=== PATIENT | female | born 1975 | race Caucasian/White ===

== ENCOUNTER 2020-02-19 07:37 | Day surgery (SDC) | payer OTHER ==
[~2020-02-19 07:37] MED LIST: Sodium Chloride 0.9% 10 ML SDV IV PRN; Sodium Chloride 0.9% 10 ML Syringe FLUSH PRN; Sodium Chloride 0.9% 2.5 ML Syringe FLUSH PRN
[2020-02-19] MEDS ORDERED: Lactated Ringers 1,000 ML IV SCH (08:15)
--- NOTE | 2020-02-19 08:21 | PCM.PREANE ---
Preanesthetic Assessment - Anesthesia/Transfusion/Family Hx Anesthesia History: Prior Anesthesia Without Reaction Family History of Anesthesia Reaction: No Transfusion History: No Prior Transfusion(s) - Review of Systems General: No Symptoms Pulmonary: No Symptoms Cardiovascular: No Symptoms Gastrointestinal: No Symptoms Neurological: No Symptoms Other: Reports: None - Physical Assessment NPO Status Date: 02/18/20 Height: 5 ft 9 in Weight: 113.852 kg ASA Class: 2 Mental Status: Alert & Oriented x3 Airway Class: Mallampati = 2 Dentition: Reports: Normal Dentition ROM/Head Extension: Full Lungs: Clear to Auscultation, Normal Respiratory Effort - Allergies Allergies/Adverse Reactions: Allergies Allergy/AdvReac Type Severity Reaction Status Date / Time ketorolac [From Toradol] Allergy "stomach Verified 02/19/20 08:13 spasms" - Blood Blood Available: No - Anesthesia Plan Pre-Op Medication Ordered: None - Acknowledgements Anesthesia Type Planned: General Anesthesia Pt an Appropriate Candidate for the Planned Anesthesia: Yes Alternatives and Risks of Anesthesia Discussed w Pt/Guardian: Yes Pt/Guardian Understands and Agrees with Anesthesia Plan: Yes Additional Comments: pmh: migraine, anxiety disorder (? bipolar -abilify, topamax) PLAN: ga/lma PreAnesthesia Questionnaire HEENT History: Reports: Allergic Rhinitis, Other (See Below) Other HEENT History: wears glasses Cardiovascular History: Reports: None Respiratory History: Reports: None Gastrointestinal History: Reports: GERD Genitourinary History: Reports: None [employer] History: Reports: , Other (See Below) Other OB/BYN History: hx suction D&C for incomplete AB Musculoskeletal History: Reports: None Neurological History: Reports: Migraines Psychiatric History: Reports: Anxiety, Depression Endocrine/Metabolic History: Reports: Obesity/BMI 30+ Hematologic History: Reports: None Immunologic History: Reports: Other (See Below) Other Immunologic History: hx MRSA following breast reduction Oncologic (Cancer) History: Reports: None Dermatologic History: Reports: None - Past Surgical History Head Surgeries/Procedures: Reports: None HEENT Surgical History: Reports: Naso-Sinus Surgery Cardiovascular Surgical History: Reports: None Respiratory Surgical History: Reports: None GI Surgical History: Reports: Cholecystectomy, EGD Female Surgical History: Reports: Breast Reconstruction, D&C, Tubal Ligation Endocrine Surgical History: Reports: None Neurological Surgical History: Reports: None Musculoskeletal Surgical History: Reports: Arthroscopic Knee Oncologic Surgical History: Reports: None Dermatological Surgical History: Reports: Plastic Surgical Reconstruction/Repair - SUBSTANCE USE Smoking Status *Q: Former Smoker Tobacco Use Within Last Twelve Months: No - HOME MEDS Home Medications: Home Meds ARIPiprazole [Abilify] 5 mg PO DAILY 02/15/20 [History] Cholecalciferol (Vitamin D3) [Vitamin D3] 400 units PO DAILY 02/15/20 [History] Cimetidine 400 mg PO DAILY 02/15/20 [History] Desvenlafaxine Succinate [Pristiq] 100 mg PO DAILY 02/15/20 [History] Fish Oil/[place]-3 Fatty Acids [Fish Oil 1,000 MG] 1,000 mg PO DAILY 02/15/20 [History] Fluticasone Propionate [Flonase Allergy Relief] 1 spray NASBOTH DAILY PRN 02/15/20 [History] Loratadine/Pseudoephedrine [Claritin-D 24 Hour Tablet] 1 tab PO DAILY 02/15/20 [History] Multivitamin [Multivitamins] 1 tab PO DAILY 02/15/20 [History] Pantoprazole Sodium [Protonix] 2 tab PO DAILY 02/15/20 [History] Testosterone [Androderm] 1 dose .ROUTE ASDIRECTED 02/15/20 [History] desogestreL-ethinyl estradioL [Jule[place] 28 Day Tablet] 1 tab PO DAILY 02/15/20 [History] traZODone HCl [Trazodone HCl] 0.5 mg PO BEDTIME 02/15/20 [History] Topiramate [Topamax] 25 mg PO DAILY 02/19/20 [History] - CURRENT (IN HOUSE) MEDS Current Meds: Current Medications Lactated Ringer's (Ringers, Lactated) 1,000 mls @ 150 mls/hr IV ASDIRECTED STUART Sodium Chloride (Saline Flush) 10 ml FLUSH ASDIRECTED PRN PRN Reason: Keep Vein Open Sodium Chloride (Saline Flush) 2.5 ml FLUSH ASDIRECTED PRN PRN Reason: Keep Vein Open Sodium Chloride (Normal Saline) 10 ml IV ASDIRECTED PRN PRN Reason: IV Use
[2020-02-19] MEDS ORDERED: Propofol 200 MG/20 ML SDV ONE ×2 (08:39→09:46)
[2020-02-19] MEDS ORDERED: Ondansetron 4 MG/2 ML SDV ONE (08:39)
[2020-02-19] MEDS ORDERED: Dexamethasone 4 MG/ML 5 ML MDV ONE (08:39)
[2020-02-19] MEDS ORDERED: fentaNYL 250 MCG/5 ML SDV ONE (08:39)
[2020-02-19] MEDS ORDERED: Midazolam 1 MG/ML 2 ML SDV ONE (08:39)
[2020-02-19] MEDS ORDERED: Succinylcholine/Sod PF 100 MG/5 ML SYRINGE IV ONE (09:55)
--- NOTE | 2020-02-19 10:04 | PCM.OPNOTE ---
- General Post-Op/Procedure Note Date of Surgery/Procedure: 02/19/20 Operative Procedure(s): Operative hysteroscopy with polypectomy, thermal endometrial ablation (yogesh) Findings: Endocervical polyp, otherwise normal appearing cavity Pre Op Diagnosis: Menometrorrhagia Post-Op Diagnosis: Same Anesthesia Technique: General LMA Primary Surgeon: Jelena Gutierrez Pathology: endocervical polyp, endometrial curretings Fluid Replacement, Intraop: 900 (Fluid deficit 275 ml NS) EBL in mLs: 10 Complications: none known Condition: Good Free Text/Narrative:: Dictation [id number]
--- NOTE | 2020-02-19 10:39 | PCM.POSTAN ---
POST ANESTHESIA ASSESSMENT - MENTAL STATUS Mental Status: Alert, Oriented - VITAL SIGNS Vital Signs: Last Vital Signs Temp 96.8 F L 02/19/20 08:26 Pulse 81 02/19/20 08:26 Resp 16 02/19/20 08:26 BP 135/85 02/19/20 08:26 Pulse Ox 97 02/19/20 08:26 - RESPIRATORY Respiratory Status: Respiratory Rate WNL, Airway Patent, O2 Saturation Stable - CARDIOVASCULAR CV Status: Pulse Rate WNL, Blood Pressure Stable - GASTROINTESTINAL GI Status: No Symptoms - PAIN Pain Score: 2 - POST OP HYDRATION Hydration Status: Adequate & Stable
--- NOTE | 2020-02-19 11:43 | PCM48HPAN ---
Post Anesthesia Note - EVALUATION WITHIN 48HRS OF ANESTHETIC Vital Signs in Normal Range: Yes Patient Participated in Evaluation: Yes Respiratory Function Stable: Yes Airway Patent: Yes Cardiovascular Function Stable: Yes Hydration Status Stable: Yes Pain Control Satisfactory: Yes Nausea and Vomiting Control Satisfactory: Yes Mental Status Recovered: Yes Vital Signs: Last Vital Signs Temp 96.8 F L 02/19/20 10:40 Pulse 73 02/19/20 11:00 Resp 15 02/19/20 11:00 BP 132/75 02/19/20 11:00 Pulse Ox 98 02/19/20 11:00
--- NOTE | 2020-02-20 09:59 | OR ---
SURGEON: Jelena Gutierrez M.D. DATE OF PROCEDURE: 02/19/2020 INDICATIONS: Ramon is a 44-year-old female who has had a tubal ligation for permanent control, presents with ongoing difficulties with menometrorrhagia. Endometrial biopsy was benign. At this time, she would like to proceed with further evaluation with hysteroscopy and thermal endometrial ablation. Risks of procedure have been discussed and proper consent was obtained. DESCRIPTION OF PROCEDURE: The patient was taken to the operating room where she underwent LMA general anesthesia, was then placed in modified dorsal lithotomy position, was prepped and draped in usual sterile fashion. Bladder was drained. Time-out was performed. Speculum was introduced in the vagina. Cervix was visualized. Anterior and posterior lip of the cervix grasped with an Allis clamp straightening the endocervical canal. MyoSure hysteroscope was now gently introduced using normal saline as distention media. I was able to visualize the endocervical and lower uterine segment fundal portion of the uterus. Right ostium and left ostium able to be visualized. Uterine cavity itself appeared smooth, normal appearance, lower uterine segment without any lesions. Endocervical canal has an endocervical polyp noted. This is resected using MyoSure, the specimen will be sent to pathology. The hysteroscope was now removed and a gentle curettage of the endometrium was performed. Sandra was prepped according to bologna lacer protocol, introduced into the uterine cavity. After sounding the internal os at 4 cm, the arms were released, and balloon was insufflated. The integrity test was performed. Initial integrity test passed. Second integrity test was attempted, it did not pass. Therefore, it was noted at that time the patient was having a lot of abdominal breathing and pressure. Therefore, Anesthesia corrected this and proceeded with attempts to reintroduce the same Sandra. However, it would not pass the integrity test, therefore, switched. The uterine cavity itself visualized well and did not suspect any areas of perforation, so I proceeded with trying an alternative handpiece. Sandra once again with a different handpiece was prepped according to bologna lacer protocol, was introduced into the uterine cavity. Arms released, balloon insufflated, and the integrity test did pass at this time. The ablative process was now able to be completed for a total of 120 seconds. At the end of this, the balloon was then desufflated. The arms were released, and Sandra device was withdrawn from the uterine cavity. Hemostasis appeared evident. Sponge and instrument count was correct. The patient will go to PACU in stable condition, specimen to pathology. DANAE / ROXY /[id number]
== END 2020-02-19 11:23 | disposition home or self-care (01) ==
LOC: MW.SDS 07:37
PROVIDERS: ATTEND Obstetrics & Gynecology
DX: N84.1 Polyp of cervix uteri (principal); F41.9 Anxiety disorder, unspecified; F32.9 Major depressive disorder, single episode, unspecified; E66.9 Obesity, unspecified; K21.9 Gastro-esophageal reflux disease without esophagitis; Z87.891 Personal history of nicotine dependence; Z88.6 Allergy status to analgesic agent; Z98.51 Tubal ligation status; Z79.899 Other long term (current) drug therapy; Z68.37 Body mass index [BMI] 37.0-37.9, adult
CPT/HCPCS: 36415; 58563; 84703; 85027; 88305; J0330; J1100; J2250; J2405; J2704; J3010; J7120; 00952